=== PATIENT | female | born 1940 | race Caucasian/White ===

== ENCOUNTER 2016-08-25 17:37 | Inpatient (IN) | payer MEDICARE, OTHER ==
[~2016-08-25] VITALS: Ht 160 cm; Wt 48.0 kg
[2016-08-25 18:00] LABS: ADD SCAN DIFF NO
[2016-08-25 18:17] LABS: INR 0.95; PROTIME 12.7 Sec (12.2-14.2)
[2016-08-25 18:18] LABS: PARTIAL THROMBOPLASTIN TIME 24.1 Sec (25.0-35.0)
[2016-08-25 18:20] LABS: CHLORIDE 111 mmol/L (97-110)
[2016-08-25 18:21] LABS: POTASSIUM 4.5 mmol/L (3.5-5.1); SODIUM 143 mmol/L (135-144)
[2016-08-25 18:23] LABS: CREATININE 1.26 mg/dl (0.44-1.00)
[2016-08-25 18:24] LABS: ABNORMAL IP MESSAGE 1; ANION GAP 18 (8-16); BLOOD UREA NITROGEN 40 mg/dl (7-20); CARBON DIOXIDE 19 mmol/L (21-31); GLUCOSE 123 mg/dl (70-220); HEMATOCRIT 16.8 % (37.0-47.0); MEAN CORPUSCULAR HEMOGLOBIN 21.6 pg (29.0-33.0); MEAN CORPUSCULAR HGB CONC 29.8 g/dl (32.0-37.0); MEAN CORPUSCULAR VOLUME 72.7 fl (82.0-101.0); MEAN PLATELET VOLUME 10.1 fl (7.4-10.4); PLATELET COUNT 425 10^3/UL (140-415); RED BLOOD COUNT 2.31 10^6/ul (4.20-5.40); RED CELL DISTRIBUTION WIDTH 16.6 % (11.5-14.5)
--- NOTE | 2016-08-25 18:38 | RADRPT ---
PROCEDURE: XR Chest. CLINICAL INDICATION: Chest pain TECHNIQUE: Single AP portable chest semi-erect. COMPARISON: None. FINDINGS: The cardiac silhouette is enlarged. Large right and moderate left pleural effusion marked vascular congestion . Superimposed airspace disease cannot be excluded. Chronic fracture deformity of the r ight clavicle. Atherosclerotic calcification of the aorta. No pneumothorax. Postsurgical changes i n the right axilla.. IMPRESSION: 1. Bilateral pleural effusions and vascular congestion compatible with CHF. Superimposed infectious process cannot be excluded . RPTAT:AAJJ Mena Mcmahon Physician Date Time Electronically viewed and signed by Physician Angelito on 08/25/2016 18:37 FABIO/
[2016-08-25 18:39] LABS: TROPONIN-I < 0.012 ng/ml (0.00-0.12)
[2016-08-25] MEDS ORDERED: PANTOPRAZOLE IV 80 MG in SOD CHLORIDE 0.9% 100 ML IV STA (18:39)
[2016-08-25] MEDS ORDERED: PANTOPRAZOLE IV 80 MG in SOD CHLORIDE 0.9% 100 ML IVPB STA (18:39)
[2016-08-25] MEDS ORDERED: SOD CHLORIDE 0.9% 250 ML IV ONE (18:39)
[2016-08-25] MEDS ORDERED: LORA0.5T PO (18:48)
[2016-08-25] MEDS ORDERED: OLME20TA20 PO (18:49)
[2016-08-25] MEDS ORDERED: TYL500 PO (18:50)
[2016-08-25 18:58] LABS: BASOPHIL # 0.1 10^3/ul (0.0-0.1); LYMPHOCYTES # 1.2 10^3/ul (0.8-2.9); MONOCYTE # 0.3 10^3/ul (0.3-0.9); NEUTROPHIL # 5.1 10^3/ul (1.6-7.5)
[2016-08-25 18:59] LABS: HYPOCHROMASIA 2+
--- NOTE | 2016-08-25 19:23 | ERA ---
ER Documentation Chief Complaint Date/Time DATE: 08/25/16 TIME: 19:17 Chief Complaint SOB HPI This is a 76-year-old female who presents to the emergency room for evaluation of shortness of breath. This patient does state she has a history of cancer and states that she has been feeling progressively worse over the past 3 days. The patient's son is also at bedside and states that this patient has progressively gotten worse. She denies any chest pain or palpitations but does state that her shortness of breath is worse with exertion. This patient did call 911 earlier today and then refused to come to the emergency room. After a few hours the shortness of breath got worse and the patient called 911 again and was transferred to the ER for evaluation ROS All systems reviewed and are negative except as per history of present illness. Medications Home Meds Reported Medications Acetaminophen* (Tylenol*) 500 Mg Tab, 500 MG PO BID Y for MILD PAIN LEVEL 1-3, TAB 08/25/16 Olmesartan Medoxomil (Benicar) 20 Mg Tablet, 20 MG PO DAILY, #30 TAB 08/25/16 Lorazepam* (Lorazepam*) 0.5 Mg Tablet, 0.5 MG PO HS Y for ANXIETY, TAB 08/25/16 Allergies Allergies: Coded Allergies: No Known Allergy (Unverified , 08/25/16) PMhx/Soc History of Surgery: Yes (breast CA right) Hx Psychiatric Problems: No Hx Miscellaneous Medical Probl: No Hx Alcohol Use: No Hx Substance Use: No Hx Tobacco Use: No Smoking Status: Never smoker Physical Exam Vitals Vital Signs Date Time Temp Pulse Resp B/P Pulse Ox O2 Delivery O2 Flow Rate FiO2 08/25/16 17:52 98.0 95 24 152/78 94 Room Air 08/25/16 17:41 98.0 95 24 152/78 94 Physical Exam INITIAL VITAL SIGNS: Reviewed by me GENERAL: The patient is well developed and appropriate for usual state of health in no apparent distress HEENT: Conjunctival pallor, dry mucous membranes, pupils equal, round, and reactive to light. EOMI. There is no scleral icterus. NECK: C-spine is soft and supple, there is no meningismus. There is no cervical lymphadenopathy. LUNGS: Clear to auscultation bilaterally. There are no rales, wheezes or rhonchi. HEART: Regular rate and rhythm, no murmurs, clicks, rubs or gallops. ABDOMEN: Soft, non-tender, non-distended. There are bowel sounds in all four quadrants. No rebound or guarding. EXTREMITIES: Right upper extremity with moderate to severe lymphedema, no erythema. NEUROLOGICAL: The patient moves all four extremities with 5/5 strength. Cranial nerves II - XII are intact. Normal gait. Alert and oriented SKIN: There is no apparent rash or petechiae. Rectal exam: Brown stool, heme positive HEME/LYMPHATIC: There is no evidence of excessive bruising or lymphedema. PSYCHIATRIC: The patient does not appear anxious or depressed. Result Diagram: 08/25/16174908/25/16 175 Results 24 hrs Laboratory Tests Test 08/25/16 17:50 White Blood Count 6.610^3/ul Red Blood Count 2.3110^6/ul Hemoglobin 5.0g/dl Hematocrit 16.8% Mean Corpuscular Volume 72.7fl Mean Corpuscular Hemoglobin 21.6pg Mean Corpuscular Hemoglobin Concent 29.8g/dl Red Cell Distribution Width 16.6% Platelet Count 52555^3/UL Mean Platelet Volume 10.1fl Neutrophils % 77.0% Lymphocytes % 18.0% Monocytes % 4.0% Basophils % 1.0% Neutrophils # 5.110^3/ul Lymphocytes # 1.210^3/ul Monocytes # 0.310^3/ul Basophils # 0.110^3/ul Hypochromasia 2+ Rouleau 2+ Prothrombin Time 12.7Sec Prothrombin Time Ratio 1.0 INR International Normalized Ratio 0.95 Activated Partial Thromboplast Time 24.1Sec Sodium Level 143mmol/L Potassium Level 4.5mmol/L Chloride Level 111mmol/L Carbon Dioxide Level 19mmol/L Anion Gap 18 Blood Urea Nitrogen 40mg/dl Creatinine 1.26mg/dl Glucose Level 123mg/dl Calcium Level 9.0mg/dl Troponin I < 0.012ng/ml Current Medications Medications (Trade) Dose Ordered Sig/Jorge Route PRN Reason Start Time Stop Time Status Last Admin Dose Admin Pantoprazole 80 mg/Sodium Chloride 100 ml @ 400 mls/hr ONCE STAT IVPB 08/25/16 18:39 08/25/16 18:53 DC 08/25/16 19:03 Pantoprazole 80 mg/Sodium Chloride 100 ml @ 10 mls/hr ONCE STAT IV 08/25/16 18:39 08/26/16 04:38 Sodium Chloride (NS) 250 ml @ 0 mls/hr Q0M ONCE IV 08/25/16 18:39 08/25/16 18:42 DC Ondansetron HCl (Zofran Inj) 4 mg ER BRIDGE PRN IV NAUSEA AND/OR VOMITING 08/25/16 19:30 08/26/16 19:29 Acetaminophen (Tylenol Tab) 650 mg ER BRIDGE PRN PO MILD PAIN/FEVER 08/25/16 19:30 08/26/16 19:29 Procedures/MDM Chest X-ray 1V Interpreted by me: Soft Tissue: No acute abnormalities Bones: No acute abnormalities Mediastinum/Cardiac Silhouette/Lungs: Cardiomegaly with pulmonary vascular congestion EKG: Rate/Rhythm: [Normal Sinus Rhythm] QRS, ST, T-waves: [No changes consistent w/ acute ischemia] Impression: [No evidence of ischemia or arrhythmia] This 76-year-old female presents to the emergency room for evaluation of shortness of breath. When I evaluated her this patient did have some conjunctival pallor. Lab work was obtained including an EKG. EKG is nonischemic. Chest x-ray shows pulmonary vascular congestion with possible infiltrates however this patient is afebrile, is not coughing, and has no leukocytosis. My suspicion for infectious process in the lungs is low and I feel that her congestion is secondary to underlying CHF. This patient's lab work returned and shows a hemoglobin of 5. Did do a rectal exam on this patient and rectal exam does show brown stool which is heme positive. This patient is likely been suffering from a chronic upper GI bleed with gradual decompensation in her ability to tolerate physical activity. I have notified the patient and the patient's son regards to her diagnosis. This patient will be transfused 2 units of packed red blood cells here in the emergency room. She was given 80 mg of Protonix and started on a Protonix drip. This patient is hemodynamically stable at this time with no need for emergent gastroenterology prevention. She will be placed on the telemetry floor at this time under the care of Dr. Hatfield. Departure Diagnosis: Primary Impression: Upper GI bleed Additional Impressions: Shortness of breath Severe anemia Renal insufficiency Congestive heart failure Condition: Stable CRISTINO CASTILLO DO August 25, 2016 19:23
[2016-08-25] MEDS ORDERED: ONDANSETRON 4 MG INJ IV PRN ×2 (19:30→20:30)
[2016-08-25] MEDS ORDERED: ACETAMINOPHEN 325 MG TAB PO PRN (19:30)
[2016-08-25] MEDS ORDERED: MAGNESIUM HYDROXIDE 30ML CUP PO PRN (20:30)
[2016-08-25] MEDS ORDERED: ZOLPIDEM 5 MG TAB PO PRN (20:30)
[2016-08-25] MEDS ORDERED: FUROSEMIDE 40 MG INJ IV ONE (20:30)
[2016-08-25] MEDS ORDERED: NACL 0.9% 3 ML SYG IV SCH (20:30)
[2016-08-25 21:20] VITALS: TEMP 98.1
[2016-08-25 22:00] VITALS: Ht 160 cm; Wt 48.0 kg
[2016-08-25 22:19] VITALS: PULSE 92
[2016-08-26] VITALS (14 sets, daily range): BP systolic 127–195; BP diastolic 67–92; PULSE 81–107; RESP 17–20
[2016-08-26 00:14] LABS: CREATINE KINASE 58 IU/L (23-200)
[2016-08-26 00:28] LABS: CK-MB 1.63 ng/ml (0.0-2.4)
[2016-08-26 00:32] LABS: TROPONIN-I < 0.012 ng/ml (0.00-0.12)
[2016-08-26] MEDS ORDERED: ACETAMINOPHEN 500 MG TAB PO ONE (01:20)
[2016-08-26] MEDS ORDERED: DIPHENHYDRAMINE 50 MG INJ IV ONE ×2 (01:30→18:00)
[2016-08-26] MEDS: hydrALAzine 20 MG INJ IV PRN (01:32)
[2016-08-26] MEDS: ALBUTEROL/IPRATROPIUM (NEB) 3 ML AMP HHN SCH ×5 (03:30→21:00)
[2016-08-26 03:54] LABS: ADD SCAN DIFF NO
[2016-08-26 03:58] LABS: ABNORMAL IP MESSAGE 1; BASOPHILS % 0.6 % (0.0-2.0); EOSINOPHILS # 0.1 10^3/ul (0.0-0.5); EOSINOPHILS % 1.2 % (0.0-7.0); HEMATOCRIT 19.8 % (37.0-47.0); LYMPHOCYTES # 2.2 10^3/ul (0.8-2.9); LYMPHOCYTES % 30.2 % (15.0-51.0); MEAN CORPUSCULAR HEMOGLOBIN 23.4 pg (29.0-33.0); MEAN CORPUSCULAR HGB CONC 31.8 g/dl (32.0-37.0); MEAN CORPUSCULAR VOLUME 73.6 fl (82.0-101.0); MEAN PLATELET VOLUME 9.8 fl (7.4-10.4); MONOCYTE # 0.6 10^3/ul (0.3-0.9); MONOCYTES % 8.9 % (0.0-11.0); NEUTROPHIL # 4.2 10^3/ul (1.6-7.5); NEUTROPHILS % 58.7 % (39.0-77.0); NUCLEATED RED BLOOD CELLS% 0.6 /100WBC (0.0-0.0); PLATELET COUNT 371 10^3/UL (140-415); RED BLOOD COUNT 2.69 10^6/ul (4.20-5.40); RED CELL DISTRIBUTION WIDTH 17.1 % (11.5-14.5); WHITE BLOOD COUNT 7.2 10^3/ul (4.8-10.8)
[2016-08-26 04:01] LABS: ADD UMIC NO; URINE BILIRUBIN (Dip) NEGATIVE (NEGATIVE); URINE BLOOD (Dip) NEGATIVE (NEGATIVE); URINE COLOR LT. YELLOW (YELLOW); URINE GLUCOSE (Dip) NEGATIVE (NEGATIVE); URINE KETONES (Dip) NEGATIVE (NEGATIVE); URINE LEUKOCYTE ESTERASE (Dip) NEGATIVE (NEGATIVE); URINE NITRITE (Dip) NEGATIVE (NEGATIVE); URINE TOTAL PROTEIN (Dip) NEGATIVE (NEGATIVE); URINE UROBILINOGEN (Dip) 0.2 E.U./dL (0.1-1.0)
[2016-08-26 04:04] LABS: HEMOGLOBIN 6.3 g/dl (12.0-16.0)
[2016-08-26 04:17] LABS: POTASSIUM 4.2 mmol/L (3.5-5.1)
[2016-08-26 04:20] LABS: CREATININE 1.29 mg/dl (0.44-1.00)
[2016-08-26 04:21] LABS: CALCIUM 9.1 mg/dl (8.4-10.2); CHOL/HDL RATIO 1.8 RATIO
[2016-08-26] MEDS: METHYLPRED. NA SUCC 1,000 MG in DEXTROSE 5% 50 ML IVPB ONE ×2 (04:30→04:39)
[2016-08-26 04:31] LABS: CREATINE KINASE 57 IU/L (23-200)
[2016-08-26 04:44] LABS: CK-MB 1.69 ng/ml (0.0-2.4)
[2016-08-26 04:45] LABS: TROPONIN-I < 0.012 ng/ml (0.00-0.12)
[2016-08-26 04:57] LABS: POST-TRANSFUSION BILIRUBIN 0.3 mg/dl
--- NOTE | 2016-08-26 09:31 | RADRPT ---
PROCEDURE: XR Chest 1 view. CLINICAL INDICATION: Shortness of breath TECHNIQUE: AP views of the chest was obtained. COMPARISON: Yesterday FINDINGS: The heart is large. Calcified atherosclerosis is noted in the aorta. Central pulmonary vascular con gestion and interstitial prominence in both lungs is unchanged. Patchy infiltrates throughout both lungs, combined with moderate pleural effusions are stable, given differences in technique. The oss eous structures are osteopenic, but appear grossly intact. Surgical clips are noted in the right ax illa. IMPRESSION: Cardiomegaly with calcified atherosclerosis in the aorta. Continued central pulmonary vascular congestion and interstitial prominence in both lungs. Stable patchy infiltrates throughout both lungs, combined with moderate pleural effusions. RPTAT: AA .George Monroe MD, MD Date Time Electronically viewed and signed by .George Monroe MD, on 08/26/2016 09:30 .P/
--- NOTE | 2016-08-26 13:11 | CONS ---
DATE OF ADMISSION: 08/25/2016 DATE OF CONSULTATION: Dear Dr. Wilde: Thank you for asking me to see Mrs. Fuller in GI consultation. HISTORY OF PRESENT ILLNESS: As you know, the patient is a 76-year-old [place] female, has been adm itted to the hospital because of severe weakness and tiredness, and on admission, hemoglobin was 5.0 . She received part of the first transfusion, hemoglobin up to 6.3, MCV 72.7, WBC 6600, platelet co unt 425,000. No history of vomiting blood or passing blood from the rectum. She has a history of r ight mastectomy. She has a lymphedema on the right side. The chest x-ray shows cardiomegaly, vascular congestion, infiltrates noted in the lungs with effusio n. She has no history of vomiting blood or passing blood from the rectum. She lost some weight. PHYSICAL EXAMINATION: GENERAL: The patient is a 76-year-old white, [place] female who at this time is alert, thin built. VITAL SIGNS: Blood pressure is 134/75, pulse is 86. CARDIOVASCULAR: Normal heart sounds. RESPIRATORY: Normal breath sounds. ABDOMEN: Showed unremarkable findings except some thickness in the abdominal wall. CLINICAL IMPRESSION: Severe anemia, iron deficiency, most likely gastrointestinal bleeding, rule ou t peptic ulcer disease, gastrointestinal malignancy, history of right mastectomy with lymphedema of the right upper extremity. PLAN: The patient at this time refused to have upper endoscopy. Meanwhile, at this time, continue proton pump inhibitor therapy, recommend upper endoscopy, lower endoscopy when the patient accepts. Dictated By: KINGS AUGUSTIN MD NC/NICOLE Conf#: [id number] DID#: [id number] CC: JAMEY WILDE MD;*EndCC*
[2016-08-26] MEDS ORDERED: FUROSEMIDE 20 MG INJ IV ONE (16:30)
--- NOTE | 2016-08-26 17:44 | CONS ---
Date/Time of Note Date/Time of Note DATE: 08/26/16 TIME: 17:43 Assessment/Plan Assessment/Plan Chief Complaint/Hosp Course The patient is a 76 year old woman who presented to the emergency room with 4 days of weakness, shortness of breath and found to have a hemoglobin of 5.0, concerning for GI bleed but refusing endoscopy, with concern for transfusion reaction. # Microcytic anemia with MCV 72.7 and elevated RDW 16.6 with mild thrombocytosis (platelets 425) likely consistent with iron deficiency anemia concerning for GI bleed. She was found to have heme+ stool in the emergency room. Patient has a reported history of iron deficiency anemia but refused work -up. - Patient evaluated by GI but refusing upper and lower endoscopy. - Patient was transfused 1 unit pRBCs with improvement of Hgb to 6.3 but complicated by possible infusion reaction (see below). Plan to transfuse at least 2 more units (see below). - Will also give IV iron starting 08/27/16 so as to not confuse reaction to blood with reaction to iron. May need to consider Procrit if unable to give blood due to transfusion reactions (see below). - Will obtain peripheral smear review to rule out leukoerythroblastic process given history of recurrent breast cancer - Will obtain iron panel, ferritin, B12, folate, TSH, LDH, retic, haptoglobin # Concern for transfusion reaction, with SOB (per RN report though patient denies), facial flushing and BP of 195/92, patient given benadryl, tylenol and hydralazine after reaction. Patient states that she has never received a transfusion before. - Transfusion reaction investigation showed "nonspecific transfusion reaction, no evidence of hemolytic transfusion reaction." - Per blood bank, antibody screen prior to transfusion was negative. - Given concern for allergic transfusion reaction, I have ordered pRBCs to be WASHED (blood bank has spoken to [place], who will process the washed pRBCs and deliver today or tomorrow). Will also give dexamethasone 10 mg IV, benadryl 25 mg IV and tylenol 650 mg PO pre-medications. - Will also check quantitative immunoglobulins to check for IgA deficiency though rare (IgA deficient individuals who produce IgA Ab may react with IgA in transfused product). # History of locally advanced right breast cancer in 08/2014 with peau d'orange on presentation, treated by Dr. Joiner, ER/MA positive, status post neoadjuvant taxol with 50% reduction in mass followed by mastectomy 02/2015 pT4N1 stage IIIB complicated by post-op infections/seromas. She was supposed to take adjuvant anastrozole however was noncompliant (Dr. Joiner did not think she would be able to tolerate AC), and recurred 1 year later with biopsy- proven chest wall recurrence. - She has been on anastrozole since recurrence but states that would refuse any other treatment other than "taking a pill." - Patient refuses restaging scans - follow-up with Dr. Joiner after discharge (she has been noncompliant and has not followed up with him in a long time) Problems: Consultation Date/Type/Reason Admit Date/Time August 25, 2016 at 19:17 Date of Consultation: August 26, 2016 Type of Consultation: Hematology/Oncology Reason for Consultation Transfusion reaction Hx of Present Illness The patient is a 76 year old woman who presented to the emergency room with 4 days of weakness, shortness of breath and dyspnea on exertion, even with standing. She was found to have heme+ stool in the emergency room. She was evaluated by GI but refused upper and lower endoscopy. The patient states that she used to take iron but last took 2-3 months ago. She denies black or bloody stools. Last night, after completing 1 unit pRBC, per nursing report, patient complained SOB, facial flush and BP of 195/92. Dr. Monique was called and he suspected blood transfusion reaction. He ordered Benadryl 25 mg IV, Tylenol 1g PO and hydralazine 10 mg IV. All 3 med were given and patient felt better 1 hour later. Blood and IV tubing were sent to the blood bank for testing for possible transfusion reaction, which demonstrated "nonspecific transfusion reaction, no evidence of hemolytic transfusion reaction." Per blood bank, antibody screen prior to transfusion was negative. Dr. Monique also ordered methylprednisolone 1 g IV but patient said she felt fine and refused the steroid med. She states that she currently feels better after receiving 1 unit pRBC last night. In speaking with the patient today, she did endorse facial redness and hypertension with blood transfusion, but denied shortness of breath or respiratory complaints. At baseline she was ambulatory and able to perform ADLs. The patient also has a history of locally advanced right breast cancer in 2014 with peau d'orange on presentation, treated by Dr. Joiner, ER/MA positive , status post neoadjuvant taxol with 50% reduction in mass followed by mastectomy 02/2015 pT4N1 stage IIIB complicated by post-op infections/seromas. She was supposed to take adjuvant anastrozole however was noncompliant (Dr. Joiner did not think she would be able to tolerate AC), and recurred 1 year later with biopsy-proven chest wall recurrence. Dr. Joiner suggested restarting AI and patient states that she did take it but has not taken it for the past 10 days as she has not felt well. She never got the PET/CT scan recommended by Dr. Joiner and has not followed up since. The patient states that she does not want a CT scan and would not want any treatment other than "taking a pill." She notes that her chest wall has improved since on anastrozole. Per Dr. Joiner, she has a previous diagnosis of iron deficiency anemia with likely occult GI bleed but refused work-up. Her hemoglobin at that time was 10.1 with MCV 76. Past Medical History Per HPI Past Surgical History Past Surgical Hx: other (mastectomy 02/2015) Family History Significant Family History: no pertinent family hx Social History Alcohol Use: none Smoking Status: Never smoker Exam/Review of Systems Vital Signs Vitals Vital Signs Date Time Temp Pulse Resp B/P Pulse Ox O2 Delivery O2 Flow Rate FiO2 08/26/16 17:11 100 Nasal Cannula 3.0 08/26/16 16:39 86 08/26/16 15:16 98.0 17 141/80 Exam Constitutional: alert, oriented, other (pale) Eyes: nl conjunctiva Neck: supple Respiratory: clear to auscultation Cardiovascular: regular rate and rhythm Gastrointestinal: non-tender, soft Musculoskeletal: swelling Extremities: other (Right arm lymphedema) Neurological: [employer] II-XII intact Skin: other (right chest wall skin lesions consistent with biopsy proven breast cancer) Results Result Diagram: 08/26/16 0334 08/26/164 Results 24 hrs Laboratory Tests Test 08/25/16 17:50 08/25/16 23:47 08/26/16 03:30 08/26/16 03:34 White Blood Count 6.6 7.2 Red Blood Count 2.31 L 2.69 L Hemoglobin 5.0 *L 6.3 #*L Hematocrit 16.8 L 19.8 L Mean Corpuscular Volume 72.7 L 73.6 L Mean Corpuscular Hemoglobin 21.6 L 23.4 L Mean Corpuscular Hemoglobin Concent 29.8 L 31.8 L Red Cell Distribution Width 16.6 H 17.1 H Platelet Count 425 H 371 Mean Platelet Volume 10.1 9.8 Neutrophils % 77.0 58.7 Lymphocytes % 18.0 30.2 Monocytes % 4.0 8.9 Basophils % 1.0 0.6 Neutrophils # 5.1 4.2 Lymphocytes # 1.2 2.2 Monocytes # 0.3 0.6 Basophils # 0.1 0.0 Hypochromasia 2+ Rouleau 2+ Prothrombin Time 12.7 Prothrombin Time Ratio 1.0 INR International Normalized Ratio 0.95 Activated Partial Thromboplast Time 24.1 L Sodium Level 143 143 Potassium Level 4.5 4.2 Chloride Level 111 H 113 H Carbon Dioxide Level 19 L 18 L Anion Gap 18 H 16 Blood Urea Nitrogen 40 H 40 H Creatinine 1.26 H 1.29 H Glucose Level 123 100 Calcium Level 9.0 9.1 Troponin I < 0.012 < 0.012 < 0.012 Creatine Kinase 58 57 Creatine Kinase Index 2.8 3.0 Creatinine Kinase MB (Mass) 1.63 1.69 Urine Color LT. YELLOW Urine Clarity CLEAR Urine pH 5.0 Urine Specific [place] 1.010 Urine Ketones NEGATIVE Urine Nitrite NEGATIVE Urine Bilirubin NEGATIVE Urine Urobilinogen 0.2 E.U./dL Urine Leukocyte Esterase NEGATIVE Urine Hemoglobin NEGATIVE Urine Glucose NEGATIVE Urine Total Protein NEGATIVE Eosinophils % 1.2 Nucleated Red Blood Cells % 0.6 H Eosinophils # 0.1 Nucleated Red Blood Cells # 0.0 Triglycerides Level 106 Cholesterol Level 142 LDL Cholesterol, Calculated 46 HDL Cholesterol 75 Cholesterol/HDL Ratio 1.8 Medications Medications Current Medications Lorazepam (Ativan) 0.5 mg Q8H PRN PO ANXIETY; Start 08/25/16 at 20:30 Ondansetron HCl (Zofran Inj) 4 mg Q6H PRN IV NAUSEA AND/OR VOMITING; Start at 20:30 Acetaminophen (Tylenol Tab) 650 mg Q6H PRN PO PAIN LEVEL 1-3 OR FEVER; Start at 20:30 Acetaminophen/ Hydrocodone Bitart ([place] (5/325)) 1 tab Q6H PRN PO PAIN LEVEL 4 -6; Start 08/25/16 at 20:30 Zolpidem Tartrate (Ambien) 5 mg QHS PRN PO INSOMNIA; Start 08/25/16 at 20:30 Magnesium Hydroxide (Milk Of Mag) 30 ml DAILY PRN PO CONSTIPATION; Start at 20:30 Hydralazine HCl (Apresoline) 10 mg Q6H PRN IV SBP>160 Last administered on 08/26t 01:32; Admin Dose 10 MG; Start 08/26/16 at 01:30 FREDRICK WHITE MD August 26, 2016 17:44
[2016-08-26] MEDS ORDERED: ACETAMINOPHEN 325 MG TAB PO ONE (18:00)
[2016-08-26] MEDS ORDERED: DEXAMETHASONE 10 MG/ML 1 ML INJ IV ONE (18:00)
--- NOTE | 2016-08-26 18:34 | HP ---
DATE OF ADMISSION: 08/25/2016 PRIMARY PHYSICIAN: Dr. Ingram. [employer] INTERPRETER ON THIS ADMISSION: Dr. Batista for gastroenterology and consult with hematology, ____ _. CHIEF COMPLAINT ON ADMISSION: Generalized weakness. HISTORY OF PRESENTING ILLNESS: This is a 76-year-old female with reported history of breast cancer, advanced age apparently, status post right mastectomy with chronic right upper extremity lymphedema , also with hypertension on Benicar, who presented to the emergency department with generalized weak ness. She was found to have severe anemia with a hemoglobin of 5.0 and MCV of 72. The patient rodney es any GI bleeding. She was found to have a mild acute kidney injury. She was ruled out for acute coronary artery disease. She was started on blood transfusion. Unfortunately, after the first unit , she seems to have a reaction. It is described as the patient having flushed face. Blood pressure increased by 50 points. The patient herself reports that her clothes was closing up. Therefore, th e transfusion was stopped. She was then premedicated with Tylenol and Benadryl. They tried again t o transfuse her. She started having a reaction similar to the first time. It was therefore discont inued and she received a dose of Lasix 40 mg IV x1 and also a Solu-Medrol 1 gram. She has been admi tted to a telemetry bed. When I talked to the patient today and also to her son, they reported that she was diagnosed with breast cancer approximately 2 years ago. The son reports that she did have 12 doses of chemotherapy as he is calling it, followed by complete mastectomy, right, with lymph nod e dissection, 18 lymph nodes. The son did say that the patient was diagnosed with a stage IV breast cancer. has been consulted from the hematology standpoint. She did talk to the previous oncologist and it seems more like the patient was diagnosed with breast cancer. She has been more or less compliant with treatment recommendations, did take some chemotherapy, subsequently did have a mastectomy, right. Post procedure, she had episodes of infection was unable to get any additional chemotherapy and by the time she had mastectomy, she was diagnosed with stage IIIB and it is likely that she is in definite advanced stage at this point. The patient herself was noted to have some i britton-deficiency anemia, back then she refused all workup. She did not follow up with the oncologist. Subsequently, she received a PET scan post procedures, patient post mastectomy, for revaluation of the staging of a cancer and did not follow up with the previous oncologist. At this point, we are ordering transfusion reaction workup and hematology is following. The patient's repeat hemoglobin t his morning after the little of the blood she received is 6.3. She is currently weak, but she denie s chest pain, nausea, vomiting, or shortness of breath. She has refused again gastroenterology work up. No EGD, no colonoscopy again. She is noted to have some pulmonary edema, volume overload on ch est x-ray. A 2D echocardiogram will be ordered and then she has been given some Lasix. ALLERGIES: NO KNOWN ALLERGIES. PAST MEDICAL HISTORY: 1. Advanced breast cancer, looks like stage IIIB at least, stage IV possibly. 2. Hypertension. 3. Iron-deficiency anemia. PAST SURGICAL HISTORY: Status post radical mastectomy right breast with implant dissection 2 years ago. SOCIAL HISTORY: The patient lives with family. She denies alcohol or tobacco use. OUTPATIENT MEDICATIONS: Include: 1. Benicar 20 mg p.o. daily. 2. Tylenol 500 mg p.o. b.i.d. p.r.n. pain. 3. Lorazepam 0.5 mg p.o. at bedtime p.r.n. anxiety. REVIEW OF SYSTEMS: As per HPI. PHYSICAL EXAMINATION: VITAL SIGNS: Temperature is 98.0, heart rate of 83, sinus rhythm, respiratory rate 17, blood pressu re 141/80. Patient is saturating 99% on 2.5 to 4 liters nasal cannula. GENERAL: She is alert and oriented x4. She is Y[place]ut speaking. HEENT: Pupils are equally round and reactive to light. Extraocular muscles are intact. Anicteric sclerae. NECK: No JVD, no thyromegaly noted. HEART: Regular rate and rhythm. No murmur, rubs, or gallops. LUNGS: She does have decreased breath sounds at the bases but good air movement on the upper lobes. No wheezes or rales are heard. CHEST: She is status post right mastectomy. She has some erythema in this area, also significant l ymphedema of the right upper extremity with some erythema. This is chronic. ABDOMEN: Soft, nontender, nondistended. Bowel sounds are present. EXTREMITIES: No clubbing or cyanosis. She does have some edema in lower extremity noted at least + 1 to +2 and at least a +3 right upper extremity with lymphedema. NEUROLOGIC: Grossly intact. LABORATORY DATA: White blood cell count is 7.2, hemoglobin 6.35 from 5.0, hematocrit 19.8, platelet count of 371. Chemistry with a sodium of 143, potassium 4.2, chloride 113, bicarbonate 18, BUN 40, creatinine 1.29, glucose of 100, calcium of 9.1. Troponins are negative x3. Triglyceride 106, cho lesterol 142, LDL 46, HDL 75. INR is 0.95. PT 12.7, PTT 24.1. Urinalysis is grossly negative. RADIOLOGICAL DATA: Chest x-ray did show while bilateral pleural effusion and vascular congestion th at are concerning for CHF. An EKG shows normal sinus rhythm, no acute T wave ST abnormalities. ASSESSMENT AND PLAN: This is a 76-year-old female with: 1. Severe symptomatic microcytic anemia, likely iron deficiency. She does have a previous history of it, refused a workup before, unfortunately had some reaction during transfusion; therefore was no t adequately transfused. Her repeat hemoglobin is 6.3. Hematology has been consulted. Workup ongo ing regarding decision for further transfusion. Patient has refused again gastroenterology workup l rose mary she did a couple of years ago. She is completely adamant about it. I talked to the son. She i s likely to refuse any additional workup including bone marrow biopsy or any other semi-invasive wor kup. The only thing she agrees to is to receive blood transfusion. 2. Pulmonary edema, possible chronic congestive heart failure. She has been ruled out for acute co ronary syndrome. Will check a 2D echocardiogram to evaluate her ejection fraction and in the meanti me, she will receive diuresis to control her volume. 3. Acute kidney injury versus chronic kidney disease. It is unclear at this point, but she may hav e some acute tubular necrosis secondary to hypovolemia given the severe anemia. We will continue to monitor her renal function, especially while receiving blood product and/or diuretics. I will chec k a renal ultrasound also if she permits it. 4. Hypertension. I agree with p.r.n. hydralazine for blood pressure control. We will hold off the Benicar for now since she does have some amount of kidney injury. 5. Breast cancer, advanced age, stage IIIB as of 2 years ago but since she did not have any treatme nt since then, it is likely that she has a stage IV disease according to her previous oncologist and also based on the current findings. The patient is refusing again any further workup, has refused PET/CT before and likely to refuse any other additional workup here. 6. Prophylaxis. Proton pump inhibitors for gastrointestinal prophylaxis. Sequential compression d evices to lower extremity for deep venous thrombosis prophylaxis if she tolerates it. DISPOSITION: Hematology evaluation and hopefully we will be able to transfuse further. Her transfu sonny reaction workup is pending. Dictated By: ALAN ISAAC/NICOLE Conf#: [id number] DID#: [id number]
[2016-08-27] VITALS (15 sets, daily range): BP systolic 69–180; BP diastolic 42–97; PULSE 81–96; RESP 17–20
[2016-08-27] MEDS: ALBUTEROL/IPRATROPIUM (NEB) 3 ML AMP HHN SCH ×5 (01:00→20:00)
[2016-08-27] MEDS: LORAZEPAM 0.5 MG TAB PO PRN ×2 (02:55→20:50)
[2016-08-27] MEDS ORDERED: DIPHENHYDRAMINE 50 MG INJ IV ONE (03:03)
[2016-08-27] MEDS ORDERED: METHYLPRED. NA SUCC 1,000 MG in DEXTROSE 5% 50 ML IV ONE (03:15)
[2016-08-27] MEDS: hydrALAzine 20 MG INJ IV PRN ×2 (06:11→20:50)
[2016-08-27] MEDS: HYDROCODONE/APAP (5/325) TAB PO PRN ×2 (09:15→20:51)
[2016-08-27 10:31] LABS: ADD SCAN DIFF NO
[2016-08-27 10:34] LABS: RETICULOCYTE COUNT % 1.5 % (0.5-1.5)
[2016-08-27 10:50] LABS: ABNORMAL IP MESSAGE 1; HEMATOCRIT 28.1 % (37.0-47.0); MEAN CORPUSCULAR HEMOGLOBIN 24.6 pg (29.0-33.0); MEAN CORPUSCULAR HGB CONC 33.1 g/dl (32.0-37.0); MEAN CORPUSCULAR VOLUME 74.3 fl (82.0-101.0); MEAN PLATELET VOLUME 9.9 fl (7.4-10.4); PLATELET COUNT 328 10^3/UL (140-415); RED BLOOD COUNT 3.78 10^6/ul (4.20-5.40); RED CELL DISTRIBUTION WIDTH 15.9 % (11.5-14.5); WHITE BLOOD COUNT 5.8 10^3/ul (4.8-10.8)
[2016-08-27 10:52] LABS: IRON 292 ug/dl (35-150)
[2016-08-27 10:54] LABS: ALBUMIN 3.6 g/dl (3.3-4.9); ALBUMIN/GLOBULIN RATIO 1.24; BILIRUBIN,INDIRECT 0.8 mg/dl (0-1.1); BILIRUBIN,TOTAL 0.8 mg/dl (0.2-1.3); CREATININE 1.31 mg/dl (0.44-1.00); TOTAL PROTEIN 6.5 g/dl (6.1-8.1)
[2016-08-27 10:56] LABS: HEMOGLOBIN 9.3 g/dl (12.0-16.0)
[2016-08-27 11:07] LABS: TOTAL IRON BINDING CAPACITY 389 ug/dl (241-421)
[2016-08-27 11:09] LABS: IMMUNOGLOBULIN A 219 mg/dl (70-400); IMMUNOGLOBULIN G 776 mg/dl (700-1600); IMMUNOGLOBULIN M 75 mg/dl (40-230)
[2016-08-27 11:25] LABS: THYROID STIMULATING HORMONE 1.15 MIU/L (0.465-4.680)
[2016-08-27 11:30] LABS: FERRITIN 20.7 ng/ml (11.1-264.0)
[2016-08-27 11:32] LABS: LYMPHOCYTES # 0.3 10^3/ul (0.8-2.9); NEUTROPHIL # 5.5 10^3/ul (1.6-7.5)
[2016-08-27 11:33] LABS: ANISOCYTOSIS 1+; BURR CELLS FEW; HYPOCHROMASIA 2+; MICROCYTOSIS 2+; POIKILOCYTOSIS 1+
[2016-08-27 11:35] LABS: ACANTHOCYTES OCCASIONAL; TARGET CELLS OCCASIONAL
[2016-08-27 11:53] LABS: MAGNESIUM 2.3 mg/dl (1.7-2.5); PHOSPHORUS 4.5 mg/dl (2.5-4.9)
[2016-08-27 11:59] LABS: FOLATE 7.3 ng/ml (2.8-20.0)
--- NOTE | 2016-08-27 12:27 | DS ---
DATE OF ADMISSION: 08/25/2016 DATE OF DISCHARGE: 08/27/2016 DISCHARGE DIAGNOSES: 1. Acute on chronic iron deficiency anemia. 2. Status post packed red blood cell transfusion. 3. Stage IV breast cancer, status post chemotherapy and right mastectomy. 4. Stage III chronic kidney disease. 5. Chronic right upper extremity lymphedema. HOSPITAL COURSE: A 76-year-old female with stage IV breast cancer, presented to the emergency room and found to have profound anemia. This was thought to be secondary to iron deficiency. The patien t refused any type of workup or intervention, except packed RBC transfusion. Initially, transfusion was not well tolerated and the patient became hypertensive. However, she was eventually able to to lerate it. The patient has completed her transfusion. She is in a stable condition for discharge. Hemoglobin will be checked prior to her discharge. The patient will follow up with her PCP and onc ologist as an outpatient. Dictated By: SCOTT LORENZO/NICOLE Conf#: [id number] DID#: [id number]
[2016-08-27 14:11] LABS: HEMATOCRIT 27.4 % (37.0-47.0); HEMOGLOBIN 9.2 g/dl (12.0-16.0)
--- NOTE | 2016-08-27 14:59 | RADRPT ---
PROCEDURE: XR Chest. CLINICAL INDICATION: Shortness of breath. Pulmonary edema. TECHNIQUE: Single frontal view. COMPARISON: 08/26/2016. FINDINGS: There is bilateral pulmonary air space disease consistent with pulmonary edema and atelectasis at th e lung bases, slightly improved. The heart is enlarged. There is calcification in the aorta consistent with atherosclerosis. Surgic al clips are present in the right axilla. There are moderate bilateral pleural effusions. There is no pneumothorax. IMPRESSION: 1. Slightly improved appearance of the lungs. 2. No other change from 08/26/2016. RPTAT: QQ .Jere Tate MD, MD Date Time Electronically viewed and signed by .Jere Tate MD, MD on 08/27/2016 14:59 .R/
[2016-08-27] MEDS ORDERED: FUROSEMIDE 40 MG INJ IV ONE (17:30)
--- NOTE | 2016-08-27 19:53 | CONS ---
Date/Time of Note Date/Time of Note DATE: 08/27/16 TIME: 19:49 Assessment/Plan Assessment/Plan Chief Complaint/Hosp Course The patient is a 76 year old woman who presented to the emergency room with 4 days of weakness, shortness of breath and found to have a hemoglobin of 5.0, concerning for GI bleed but refusing endoscopy, with concern for transfusion reaction. # Microcytic anemia with MCV 72.7 and elevated RDW 16.6 with mild thrombocytosis (platelets 425) likely consistent with iron deficiency anemia concerning for GI bleed. She was found to have heme+ stool in the emergency room. Patient has a reported history of iron deficiency anemia but refused work -up. - Patient evaluated by GI but refusing upper and lower endoscopy. - Patient was transfused 1 unit pRBCs with improvement of Hgb to 6.3 but complicated by possible infusion reaction (see below). Now status post 2 more units of pRBCs with Hgb 9.3 with washed pRBCs and pre-medications. - Will also give IV iron starting 08/27/16 while here - Will obtain peripheral smear review to rule out leukoerythroblastic process given history of recurrent breast cancer - Iron panel showed high iron percentage though may have been affected by blood transfusion, ferritin low at 20.7; retic count inappropriately low at 59K, LDH WNL, Vitamin B12/folate/TSH WNL. Haptoglobin pending. # Concern for transfusion reaction, with SOB (per RN report though patient denies), facial flushing and BP of 195/92, patient given benadryl, tylenol and hydralazine after reaction. Patient states that she has never received a transfusion before. - Transfusion reaction investigation showed "nonspecific transfusion reaction, no evidence of hemolytic transfusion reaction." - Per blood bank, antibody screen prior to transfusion was negative. - Given concern for allergic transfusion reaction, she received 2 units WASHED pRBCs with dexamethasone 10 mg IV, benadryl 25 mg IV and tylenol 650 mg PO pre- medications without incident. - Quantitative immunoglobulins show adequate IgA level at 219 # History of locally advanced right breast cancer in 08/2014 with peau d'orange on presentation, treated by Dr. Joiner, ER/UT positive, status post neoadjuvant taxol with 50% reduction in mass followed by mastectomy 02/2015 pT4N1 stage IIIB complicated by post-op infections/seromas. She was supposed to take adjuvant anastrozole however was noncompliant (Dr. Joiner did not think she would be able to tolerate AC), and recurred 1 year later with biopsy- proven chest wall recurrence. - She has been on anastrozole since recurrence but states that would refuse any other treatment other than "taking a pill." - Patient refuses restaging scans - follow-up with Dr. Joiner after discharge (she has been noncompliant and has not followed up with him in a long time) Problems: Consultation Date/Type/Reason Admit Date/Time August 25, 2016 at 19:17 Initial Consult Date 08/26/16 Type of Consultation: Hematology/Oncology 24 HR Interval Summary Free Text/Dictation Patient feels better after blood transfusion. She is receiving lasix. Exam/Review of Systems Vital Signs Vitals Vital Signs Date Time Temp Pulse Resp B/P Pulse Ox O2 Delivery O2 Flow Rate FiO2 08/27/16 19:34 98.0 93 20 180/81 95 08/27/16 08:12 Nasal Cannula 3.0 21 Intake and Output 08/26/16 08/26/16 08/27/16 15:00 23:00 07:00 Intake Total 900 ml Output Total 700 ml Balance 200 ml Exam Constitutional: alert, oriented, other (pale) Eyes: nl conjunctiva Neck: supple Respiratory: clear to auscultation Cardiovascular: regular rate and rhythm Gastrointestinal: non-tender, soft Musculoskeletal: swelling Extremities: other (Right arm lymphedema) Neurological: CO[employer] HE[employer] SERVICES II-XII intact Skin: other (right chest wall skin lesions consistent with biopsy proven breast cancer) Results Result Diagram: 08/27/16 1356 08/27/16 0950 Results 24 hrs Laboratory Tests Test 08/27/16 09:50 08/27/16 09:56 08/27/16 13:56 Sodium Level 142 Potassium Level 4.0 Chloride Level 113 H Carbon Dioxide Level 20 L Anion Gap 13 Blood Urea Nitrogen 36 H Creatinine 1.31 H Glucose Level 207 # Calcium Level 9.0 Total Bilirubin 0.8 Direct Bilirubin 0.00 Indirect Bilirubin 0.8 Aspartate Amino Transf (AST/SGOT) 20 Alanine Aminotransferase (ALT/SGPT) 25 Alkaline Phosphatase 80 Total Protein 6.5 Albumin 3.6 Globulin 2.90 Albumin/Globulin Ratio 1.24 White Blood Count 5.8 Red Blood Count 3.78 #L Hemoglobin 9.3 #L 9.2 L Hematocrit 28.1 #L 27.4 L Mean Corpuscular Volume 74.3 L Mean Corpuscular Hemoglobin 24.6 L Mean Corpuscular Hemoglobin Concent 33.1 Red Cell Distribution Width 15.9 H Platelet Count 328 Mean Platelet Volume 9.9 Neutrophils % 95.0 H Lymphocytes % 5.0 L Monocytes % Nucleated Red Blood Cells % 2.0 H Neutrophils # 5.5 Lymphocytes # 0.3 L Monocytes # Hypochromasia 2+ Poikilocytosis 1+ Anisocytosis 1+ Microcytosis 2+ Target Cells OCCASIONAL Acanthocytes OCCASIONAL Absolute Reticulocyte Count 0.059 Percent Reticulocyte Count 1.5 Phosphorus Level 4.5 Magnesium Level 2.3 Iron Level 292 H Total Iron Binding Capacity 389 Percent Iron Saturation 75 H Ferritin 20.7 Lactate Dehydrogenase 498 Vitamin B12 Level 977 H Folate 7.3 Thyroid Stimulating Hormone (TSH) 1.150 Immunoglobulin G 776 Immunoglobulin A 219 Immunoglobulin M 75 Medications Medications Current Medications Lorazepam (Ativan) 0.5 mg Q8H PRN PO ANXIETY Last administered on 08/27/16 02: 55; Admin Dose 0.5 MG; Start 08/25/16 at 20:30 Ondansetron HCl (Zofran Inj) 4 mg Q6H PRN IV NAUSEA AND/OR VOMITING; Start at 20:30 Acetaminophen (Tylenol Tab) 650 mg Q6H PRN PO PAIN LEVEL 1-3 OR FEVER; Start at 20:30 Acetaminophen/ Hydrocodone Bitart ([place] (5/325)) 1 tab Q6H PRN PO PAIN LEVEL 4 -6 Last administered on 08/27/16 09:15; Admin Dose 1 TAB; Start 08/25/16 at 20: 30 Zolpidem Tartrate (Ambien) 5 mg QHS PRN PO INSOMNIA; Start 08/25/16 at 20:30 Magnesium Hydroxide (Milk Of Mag) 30 ml DAILY PRN PO CONSTIPATION; Start at 20:30 Hydralazine HCl 10 mg 10 mg Q6H PRN IV SBP>160 Last administered on 08/27/16 06:11; Admin Dose 10 MG; Start 08/26/16 at 01:30 Ferric Sodium Gluconate Complex/ Sodium Chloride (Ferrlecit/NS) 110 ml @ 110 mls/hr Q24H IVPB Last administered on 08/26/16t 22:28; Admin Dose 110 MLS/HR; Start 08/27/16 at 20:00; Stop 08/31/16 at 20:59 TOFREDRICK MD August 27, 2016 19:53
[2016-08-27] MEDS ORDERED: SOD FERRIC GLUC COMPLX 125 MG in SOD CHLORIDE 0.9% 100 ML IVPB SCH (20:00)
[2016-08-28] VITALS (8 sets, daily range): BP systolic 141–171; BP diastolic 60–77; PULSE 72–104; RESP 16–18
[2016-08-28] MEDS: ALBUTEROL/IPRATROPIUM (NEB) 3 ML AMP HHN SCH ×2 (00:40→05:00)
[2016-08-28] MEDS: LORAZEPAM 0.5 MG TAB PO PRN (04:08)
[2016-08-28] MEDS: HYDROCODONE/APAP (5/325) TAB PO PRN (04:08)
--- NOTE | 2016-08-28 07:38 | PN ---
Date/Time of Note Date/Time of Note DATE: 08/28/16 TIME: 07:35 Assessment/Plan VTE Prophylaxis VTE Prophylaxis Intervention: ambulation Lines/Catheters IV [facility] ([facility] Saline Lock Urinary Cath still in place: No Assessment/Plan Assessment/Plan CHF post transfusion, responded well to diuresis. D/C home please see dc summary of 08/27 Subjective 24 Hr Interval Summary Constitutional: no complaints Exam/Review of Systems Vital Signs Vitals Vital Signs Date Time Temp Pulse Resp B/P Pulse Ox O2 Delivery O2 Flow Rate FiO2 08/28/16 04:22 85 08/28/16 03:58 98.0 18 157/72 97 08/28/16 00:40 2.0 08/27/16 20:45 Nasal Cannula 08/27/16 08:12 21 Intake and Output 08/27/16 08/27/16 08/28/16 14:59 22:59 06:59 Intake Total 900 ml 150 ml Output Total 850 ml 600 ml Balance 50 ml -450 ml Exam Constitutional: alert, oriented Neck: non-tender, supple Respiratory: clear to auscultation Cardiovascular: regular rate and rhythm Gastrointestinal: bowel sounds, non-tender, soft Extremities: edema (RUE edema) Results Result Diagram: 08/27/16 1356 08/27/16 0950 Results 24 hrs Laboratory Tests Test 08/27/16 09:50 08/27/16 09:56 08/27/16 13:56 08/28/16 05:25 Sodium Level 142 Potassium Level 4.0 Chloride Level 113 H Carbon Dioxide Level 20 L Anion Gap 13 Blood Urea Nitrogen 36 H Creatinine 1.31 H Glucose Level 207 # Calcium Level 9.0 Total Bilirubin 0.8 Direct Bilirubin 0.00 Indirect Bilirubin 0.8 Aspartate Amino Transf (AST/SGOT) 20 Alanine Aminotransferase (ALT/SGPT) 25 Alkaline Phosphatase 80 Total Protein 6.5 Albumin 3.6 Globulin 2.90 Albumin/Globulin Ratio 1.24 White Blood Count 5.8 Red Blood Count 3.78 #L Hemoglobin 9.3 #L 9.2 L Hematocrit 28.1 #L 27.4 L Mean Corpuscular Volume 74.3 L Mean Corpuscular Hemoglobin 24.6 L Mean Corpuscular Hemoglobin Concent 33.1 Red Cell Distribution Width 15.9 H Platelet Count 328 Mean Platelet Volume 9.9 Neutrophils % 95.0 H Lymphocytes % 5.0 L Monocytes % Nucleated Red Blood Cells % 2.0 H Neutrophils # 5.5 Lymphocytes # 0.3 L Monocytes # Hypochromasia 2+ Poikilocytosis 1+ Anisocytosis 1+ Microcytosis 2+ Target Cells OCCASIONAL Acanthocytes OCCASIONAL Absolute Reticulocyte Count 0.059 Percent Reticulocyte Count 1.5 Phosphorus Level 4.5 Magnesium Level 2.3 Iron Level 292 H Total Iron Binding Capacity 389 Percent Iron Saturation 75 H Ferritin 20.7 Lactate Dehydrogenase 498 Vitamin B12 Level 977 H Folate 7.3 Thyroid Stimulating Hormone (TSH) 1.150 Immunoglobulin G 776 Immunoglobulin A 219 Immunoglobulin M 75 Lab Scanned Report BLOOD TRANSFUSION Medications Medications Current Medications Lorazepam (Ativan) 0.5 mg Q8H PRN PO ANXIETY Last administered on 08/28/16 04: 08; Admin Dose 0.5 MG; Start 08/25/16 at 20:30 Ondansetron HCl (Zofran Inj) 4 mg Q6H PRN IV NAUSEA AND/OR VOMITING; Start at 20:30 Acetaminophen (Tylenol Tab) 650 mg Q6H PRN PO PAIN LEVEL 1-3 OR FEVER; Start at 20:30 Acetaminophen/ Hydrocodone Bitart ([place] (5/325)) 1 tab Q6H PRN PO PAIN LEVEL 4 -6 Last administered on 08/28/16 04:08; Admin Dose 1 TAB; Start 08/25/16 at 20: 30 Zolpidem Tartrate (Ambien) 5 mg QHS PRN PO INSOMNIA; Start 08/25/16 at 20:30 Magnesium Hydroxide (Milk Of Mag) 30 ml DAILY PRN PO CONSTIPATION; Start at 20:30 Hydralazine HCl 10 mg 10 mg Q6H PRN IV SBP>160 Last administered on 08/27/16 20:50; Admin Dose 10 MG; Start 08/26/16 at 01:30 Ferric Sodium Gluconate Complex/ Sodium Chloride (Ferrlecit/NS) 110 ml @ 110 mls/hr Q24H IVPB Last administered on 08/26/16 22:28; Admin Dose 110 MLS/HR; Start 08/27/16 at 20:00; Stop 08/31/16 at 20:59 Furosemide (Lasix) 40 mg ONCE ONCE IV ; Start 08/28/16 at 09:00; Stop 08/28/16 at 09:01 SCOTT FREGOSO MD August 28, 2016 07:38
[2016-08-28] MEDS ORDERED: FUROSEMIDE 40 MG INJ IV ONE (09:00)
--- NOTE | 2016-08-28 09:08 | RADRPT ---
Echocardiogram Report Patient Name: RICARDO GARCIA Gender: Female Date: 1940 Study Date: 27-Aug-2016 Inspector Subassembly: Jane [facility] Location: [id number] Ref. Physician: KRYSTINA BAUTISTA Quality: Adequate Procedures: Transthoracic echocardiogram with complete 2D, M-Mode, and doppler examination. Indications: Congestive Heart Failure. 2D/M Mode Doppler Measurement Value Normal Ranges Measurement Value Normal Ranges LVIDd 2D 3.4 3.5 - 5.6 cm AV Peak Daniel 1.8 m/sec LVIDs 2D 2.3 2.1 - 4.1 cm AV Peak PG 13.2 mmHg LVPWd 2D 1.1 0.6 - 1.1 cm AI Peak PG 49.6 mmHg IVSd 2D 1.1 0.6 - 1.1 cm AI Peak Daniel 3.5 m/sec AoR Diam 2D 1.9 2.0 - 3.7 cm AI PHT 601.5 msec EDV 2D 48.8 cm3 LVOT Peak Daniel 1.2 m/sec ESV 2D 12.0 cm3 LVOT Peak PG 5.4 mmHg MV E Peak Daniel 0.8 m/sec MV A Peak Daniel 1.1 m/sec MV E/A 0.7 MV Decel Time 153 msec MV Decel [place] 5 MV E/A 0.7 TR Peak Daniel 2.7 m/sec TR Peak PG 28.4 mmHg RVSP 33.0 mmHg Findings Left Ventricle: Normal left ventricular systolic function. Normal left ventricular cavity size. Left ventricular wall thickness upper limits of normal. Ejection fraction is visually estimated at 55 %. Tissue Doppler/Mitral Doppler indices are consistent with impaired relaxation (Stage I diastolic dysfunction). Right Ventricle: Normal right ventricular size. Normal right ventricular systolic function. Left Atrium: The left atrium is normal in size. Right Atrium: The right atrium is normal in size. Mitral Valve: Mitral valve leaflets appear mildly thickened. Mild mitral annular calcification. Trace mitral regurgitation. Aortic Valve: Aortic sclerosis without stenosis. Aortic cusps appear mildly calcified. Mild aortic valve regurgitation. Tricuspid Valve: Normal appearance of the tricuspid valve. Estimated peak PA systolic pressure 42 mmHg. There is mild tricuspid regurgitation. Pulmonic Valve: Pulmonic valve not well visualized. There is trace pulmonic regurgitation. Pericardium: Left pleural effusion seen. Aorta: Normal aortic root. IVC: The IVC is not well visualized. Conclusions 1.Normal left ventricular systolic function. Normal left ventricular cavity size. Left ventricular wall thickness upper limits of normal. Ejection fraction is visually estimated at 55 %. Tissue Doppler/Mitral Doppler indices are consistent with impaired relaxation (Stage I diastolic dysfunction). 2.Mitral valve leaflets appear mildly thickened. Mild mitral annular calcification. Trace mitral regurgitation. 3.Aortic sclerosis without stenosis. Aortic cusps appear mildly calcified. Mild aortic valve regurgitation. 4.Normal appearance of the tricuspid valve. Estimated peak PA systolic pressure 42 mmHg. There is mild tricuspid regurgitation. Electronically Signed By: Elliott Mahmood 28-Aug-2016 09:07:37 -0700 Patient Name: RICARDO GARCIA Study Date: 27-Aug-2016 [id number]
[2016-08-28] MEDS: ACETAMINOPHEN 325 MG TAB PO PRN ×2 (10:14→15:06)
[2016-08-29 10:20] LABS: WHITE BLOOD COUNT 6.6 10^3/ul (4.8-10.8)
== END 2016-08-28 16:00 | disposition home or self-care (01) | DRG 812 ==
LOC: E/R 17:37 → MS4 19:17
PROVIDERS: ADMIT Internal Medicine; ATTEND Internal Medicine
PROC: 30233N1 Transfusion of Nonautologous Red Blood Cells into Peripheral Vein, Percutaneous Approach (ICD-10-PCS; 2016-08-25)
PROC: 30233N1 Transfusion of Nonautologous Red Blood Cells into Peripheral Vein, Percutaneous Approach (ICD-10-PCS; principal; 2016-08-27)
DX: D50.9 Iron deficiency anemia, unspecified (principal); N17.9 Acute kidney failure, unspecified; K92.2 Gastrointestinal hemorrhage, unspecified; I13.0 Hypertensive heart and chronic kidney disease with heart failure and stage 1 through stage 4 chronic kidney disease, or unspecified chronic kidney disease; I50.9 Heart failure, unspecified; C50.911 Malignant neoplasm of unspecified site of right female breast; D47.3 Essential (hemorrhagic) thrombocythemia; N18.3 Chronic kidney disease, stage 3 (moderate); I97.2 Postmastectomy lymphedema syndrome; Y84.8 Other medical procedures as the cause of abnormal reaction of the patient, or of later complication, without mention of misadventure at the time of the procedure; Z90.11 Acquired absence of right breast and nipple
CPT/HCPCS: 36415; 36430; 71010; 80048; 80053; 80061; 81003; 82550; 82553; 82607; 82728; 82746; 82784; 83010; 83540; 83615; 83735; 84100; 84443; 84484; 85014; 85018; 85025; 85045; 85610; 85730; 86078; 86644; 86850; 86900; 86901; 86920; 86945; 93005; 93306; 96374; 96375; 96376; J1940; C9113; J0360; J1100; J1200; J2916; J2930; J7040; P9016

== ENCOUNTER 2017-12-28 14:17 | Emergency (ER) | END 2017-12-28 22:10 | disposition EXP ==